=== PATIENT | female | born 1960 | race Caucasian/White ===

== ENCOUNTER 2018-07-26 05:48 | Emergency (ER) | payer BC ==
[2018-07-26] MEDS ORDERED: Sodium Chloride 0.9% 1,000 ML ONE (06:08)
[2018-07-26] MEDS ORDERED: Sodium Chloride 0.9% 1,000 ML IV ONE ×2 (06:10→06:33)
[2018-07-26] MEDS ORDERED: Ondansetron 4 MG/2 ML SDV IVPUSH ONE (06:17)
--- NOTE | 2018-07-26 06:23 | EDM.PDOC ---
ED HPI GENERAL MEDICAL PROBLEM - General Chief Complaint: Syncope Stated Complaint: [facility] Time Seen by Provider: 07/26/18 06:09 Source of Information: Reports: Patient, Family History Limitations: Reports: No Limitations - History of Present Illness INITIAL COMMENTS - FREE TEXT/NARRATIVE: This is a 57-year-old female. She awoke around 3 AM this morning feeling somewhat nauseated. She had the need to go to the bathroom as well so she got up and went to the bathroom. While she was sitting on the commode she had a large diarrheal type stool but no blood. She was feeling somewhat weak so she laid down in the bathroom and then she had to get back up in the toilet to have another large stool which was diarrhea. She apparently got on an off the bathroom commode at least 45 times according to her . Two of times that she was sitting on the commode she had a syncopal episode and was out according to the maybe 10-20 seconds each time she passed out. He did have a blood pressure machine checked her blood pressure and one of them when she was passed out her blood pressure was 68/42 and the other time when she passed out the blood pressure was 78/62. He did not notice any abnormal rhythm. He called the ambulance and brought her to the ER. During the ambulance ride she was coherent and awake. She still has some nausea but has no urge to have diarrhea. She denies any recent illnesses colds or coughs. She is not particularly around anyone who has been ill or workers who been ill. She had some pizza last night along with several other people who are not ill. She's had no cough no congestion. - Related Data Allergies Allergy/AdvReac Type Severity Reaction Status Date / Time No Known Allergies Allergy Verified 07/26/18 05:58 Home Meds: Home Meds Ondansetron [Zofran ODT] 4 mg PO Q6H PRN #15 tab.dis 07/26/18 [Rx] Past Medical History - Past Health History Medical/Surgical History: Denies Medical/Surgical History - Past Surgical History Musculoskeletal Surgical History: Reports: Other (See Below) Other Musculoskeletal Surgeries/Procedures:: benign tumor removed from back Social & Family History - Family History Family Medical History: Noncontributory - Tobacco Use Smoking Status *Q: Never Smoker - Caffeine Use Caffeine Use: Reports: Coffee, Soda - Recreational Drug Use Recreational Drug Use: No ED ROS GENERAL - Review of Systems Review Of Systems: See Below Constitutional: Reports: Malaise, Weakness. Denies: Fever, Chills HEENT: Reports: No Symptoms Respiratory: Denies: Shortness of Breath, Cough Cardiovascular: Reports: No Symptoms Endocrine: Reports: No Symptoms GI/Abdominal: Reports: Diarrhea, Nausea. Denies: Abdominal Pain, Bloody Stool, Vomiting : Reports: No Symptoms Musculoskeletal: Reports: No Symptoms Skin: Reports: No Symptoms Neurological: Reports: No Symptoms Psychiatric: Reports: No Symptoms Hematologic/Lymphatic: Reports: No Symptoms Immunologic: Reports: No Symptoms - Physical Exam Exam: See Below Exam Limited By: No Limitations General Appearance: Alert, WD/WN, No Apparent Distress Eye Exam: Bilateral Eye: Normal Inspection Ears: Normal External Exam, Normal Canal, Normal TMs Nose: Normal Inspection Throat/Mouth: Normal Inspection, Normal Lips, Normal Oropharynx, Normal Voice, No Airway Compromise, Other (Tacky mucous membranes) Head Exam: Normocephalic Neck: Supple Respiratory/Chest: No Respiratory Distress, Lungs Clear, Normal Breath Sounds Cardiovascular: Regular Rate, Rhythm, No Murmur GI/Abdominal: Soft, Non-Tender. No: Guarding, Rigid, Rebound Neuro Exam (Abbreviated): Alert, Oriented Back Exam: Full Range of Motion Extremities: Normal Inspection, Normal Range of Motion Psychiatric: Normal Affect, Normal Mood Skin Exam: Warm, Dry EKG INTERPRETATION EKG Date: 07/26/18 Time: 06:21 EKG Interpretation Comments: Normal sinus rhythm with no acute ST or T-wave changes, no ischemia noted, left axis deviation noted Course - Vital Signs Last Recorded V/S: Last Vital Signs Temp 98.4 F 07/26/18 05:53 Pulse 73 07/26/18 05:53 Resp 18 07/26/18 05:53 BP 119/77 07/26/18 05:53 Pulse Ox 97 07/26/18 05:53 Orthostatic Blood Pressure [ 108/76 Standing] Orthostatic Blood Pressure [ 102/75 Sitting] Orthostatic Blood Pressure [ 110/79 Supine] - Orders/Labs/Meds Orders: Active Orders 24 hr Category Date Time Status EKG 12 Lead [EKG Documentation Completion] [RC] STAT Care 07/26/18 06:10 Active Sodium Chloride 0.9% [Normal Saline] 1,000 ml Med 07/26/18 06:33 Active IV ONETIME Medication Orders Sodium Chloride (Normal Saline) 1,000 mls @ 999 mls/hr IV ONETIME ONE Stop: 07/26/18 07:33 Last Admin: 07/26/18 06:50 Dose: 999 mls/hr Labs: Laboratory Tests 07/26/18 07/26/18 Range/Units 06:05 06:05 WBC 14.66 H (3.98-10.04) K/mm3 RBC 5.14 (3.98-5.22) M/mm3 Hgb 15.1 (11.2-15.7) gm/L Hct 45.2 H (34.1-44.9) % MCV 87.9 (79.4-94.8) fl MCH 29.4 (25.6-32.2) pg MCHC 33.4 (32.2-35.5) g/dl RDW Std Deviation 38.8 (36.4-46.3) fL Plt Count 420 H (182-369) K/mm3 MPV 8.6 L (9.4-12.3) fl Neut % (Auto) 88.6 H (34.0-71.1) % Lymph % (Auto) 3.5 L (19.3-51.7) % [place] % (Auto) 7.2 (4.7-12.5) % Eos % (Auto) 0.3 L (0.7-5.8) Baso % (Auto) 0.1 (0.1-1.2) % Neut # (Auto) 12.99 H (1.56-6.13) K/mm3 Lymph # (Auto) 0.51 L (1.18-3.74) K/mm3 [place] # (Auto) 1.06 H (0.24-0.36) K/mm3 Eos # (Auto) 0.04 (0.04-0.36) K/mm3 Baso # (Auto) 0.02 (0.01-0.08) K/mm3 Manual Slide Review Abnormal smear Sodium 139 (136-145) mEq/L Potassium 4.0 (3.5-5.1) mEq/L Chloride 100 (98-107) mEq/L Carbon Dioxide 27 (21-32) mEq/L Anion Gap 16.0 H (5-15) BUN 20 H (7-18) mg/dL Creatinine 1.0 (0.55-1.02) mg/dL Est Cr Clr Drug Dosing 67.93 mL/min Estimated GFR (MDRD) 57 (>60) mL/min BUN/Creatinine Ratio 20.0 H (14-18) Glucose 143 H (74-106) mg/dL Calcium 9.8 (8.5-10.1) mg/dL Total Bilirubin 0.4 (0.2-1.0) mg/dL AST 25 (15-37) U/L ALT 34 (14-59) U/L Alkaline Phosphatase 105 (46-116) U/L Troponin I < 0.017 (0.00-0.056) ng/mL Total Protein 8.8 H (6.4-8.2) g/dl Albumin 4.5 (3.4-5.0) g/dl Globulin 4.3 gm/dL Albumin/Globulin Ratio 1.1 (1-2) Meds: Medications Generic Name Dose Route Start Last Admin Trade Name Freq PRN Reason Stop Dose Admin Sodium Chloride 1,000 mls @ 999 mls/hr 07/26/18 06:33 07/26/18 06:50 Normal Saline IV 07/26/18 07:33 999 mls/hr ONETIME ONE Administration Discontinued Medications Generic Name Dose Route Start Last Admin Trade Name Freq PRN Reason Stop Dose Admin Sodium Chloride 1,000 mls @ 999 mls/hr 07/26/18 06:10 07/26/18 06:11 Normal Saline IV 07/26/18 07:10 999 mls/hr ONETIME ONE Administration Sodium Chloride Confirm 07/26/18 06:08 07/26/18 06:28 Normal Saline Administered 07/26/18 06:09 Not Given Dose 1,000 mls @ as directed .ROUTE .STK-MED ONE Ondansetron HCl 4 mg 07/26/18 06:17 07/26/18 06:30 Zofran IVPUSH 07/26/18 06:18 4 mg ONETIME ONE Administration - Re-Assessments/Exams Free Text/Narrative Re-Assessment/Exam: 07/26/18 07:19 The patient indicates she is no longer nauseated and wants to try some fluids. I spoke to her regarding the CBC and a CMP that shows she is mildly dehydrated but her kidney function is perfect and electrolytes are normal and she has a mildly elevated white count of 14,000 with a very mild left shift which can be expected from a gastroenteritis. Her blood sugar is 143. There are no other acute abnormalities in her blood work. I believe she probably had vasovagal syncope during her bowel movement. 07/26/18 07:32 The patient is feeling much better with the fluids. We gave her 2 L of fluids and then we did orthostatic vital signs and her blood pressure stayed the same though her heart rate went up slightly she did not feel dizzy she did not feel like she was going to pass out or lightheaded. She wants to go home and she been able to keep fluids down with no difficulty. Departure - Departure Time of Disposition: 07:33 Disposition: Home, Self-Care 01 Condition: Good Clinical Impression: Nausea, Dehydration, mild, Vasovagal syncope Diarrhea Qualifiers: Diarrhea type: unspecified type Qualified Code(s): R19.7 - Diarrhea, unspecified - Discharge Information *PRESCRIPTION DRUG MONITORING PROGRAM REVIEWED*: Not Applicable *COPY OF PRESCRIPTION DRUG MONITORING REPORT IN PATIENT LISETTE: Not Applicable Prescriptions: Ondansetron [Zofran ODT] 4 mg PO Q6H PRN #15 tab.dis PRN Reason: Nausea Instructions: Dehydration, Adult, [id number] Referrals: PCP,Not In Area [Primary Care Provider] - Forms: ED Department Discharge Additional Instructions: Continue with lots of fluids today and consistently drank them throughout the day, no caffeine, if you need to eat anything today then make sure it easy to digest such as crackers toast yogurt bananas, I would avoid vegetables and meat and cheese for at least 24-48 hours since they are hard to digest and might precipitate vomiting, use the medication as needed for nausea, rest and sleep as much you can for the next 1-2 days, follow up with your provider this week for recheck, return to the ER if your symptoms worsen - My Orders Last 24 Hours: My Active Orders 07/26/18 06:10 EKG 12 Lead [EKG Documentation Completion] [RC] STAT 07/26/18 06:33 Sodium Chloride 0.9% [Normal Saline] 1,000 ml IV ONETIME - Assessment/Plan Last 24 Hours: My Active Orders 07/26/18 06:10 EKG 12 Lead [EKG Documentation Completion] [RC] STAT 07/26/18 06:33 Sodium Chloride 0.9% [Normal Saline] 1,000 ml IV ONETIME
== END 2018-07-26 07:50 | disposition home or self-care (01) ==
LOC: JD.ED 05:48
DX: R55 Syncope and collapse (principal); E86.0 Dehydration; R19.7 Diarrhea, unspecified; R11.0 Nausea
CPT/HCPCS: 36415; 80053; 84484; 85025; 93005; 96361; 96374; 99285; J2405; J7040; 93010; 99284